=== PATIENT | female | born 1930 | race Caucasian/White ===

== ENCOUNTER → 2016-12-20 | Outpatient (CLI) | payer MEDICARE, OTHER | END | disposition home or self-care (01) | LOC: PCVCIMAG 11:29 | PROVIDERS: ATTEND Internal Medicine Cardiovascular Disease | DX: I65.23 Occlusion and stenosis of bilateral carotid arteries (principal); R55 Syncope and collapse; I10 Essential (primary) hypertension; R60.9 Edema, unspecified | CPT/HCPCS: 93005; 93880; G0463 ==

== ENCOUNTER → 2017-06-20 | Outpatient (CLI) | payer MEDICARE ==
--- NOTE | 2017-06-20 13:15 | PCVCIMAG ---
APPROVED REPORT Indications Stenosis Risk Factors Hypertension: Hyperlipidemia Doppler Spectral Velocity Analysis PSV / EDVPSV / EDV ECA (R) 204 / 11 cm/sECA (L) 129 / 15 cm/s dICA (R) 96 / 18 cm/sdICA (L) 74 / 21 cm/s [place] (R) 219 / 41 cm/smICA (L) 194 / 26 cm/s pICA (R) 270 / 70 cm/spICA (L) 201 / 45 cm/s Bulb (R) 77 / 14 cm/sBulb (L) 82 / 14 cm/s dCCA (R) 92 / 13 cm/sdCCA (L) 74 / 12 cm/s mCCA (R) 91 / 12 cm/smCCA (L) 87 / 12 cm/s Vert (R) 83 / 0 cm/sVert (L) 46 / 8 cm/s ICA/CCA 2.93ICA/CCA 2.72 Basic Measurements Blood Pressure: Pulses: Right Left RightLeft Brachial(Sitting) 150/95qfAo317/68mmHgTemporal Real Time B-Mode Imaging Vert. (R)AntegradeVert. (L)Antegrade Findings The right carotid bulb has severe calcified plaque. The right proximal internal carotid artery shows 70-90% stenosis. The right common carotid artery shows no significant stenosis. The right external carotid artery shows >50% stenosis. The left carotid bulb has moderately severe calcified plaque. The left proximal internal carotid artery shows 60-70% stenosis. The left common carotid artery shows no significant stenosis. The left external carotid artery shows <40% stenosis. Conclusion 1. Right internal carotid artery stenosis (70-90%) 2. Left internal carotid artery stenosis (60-70%) 3. Antegrade vertebral flow
== END | disposition home or self-care (01) ==
LOC: PCVCIMAG 12:09
PROVIDERS: ATTEND Internal Medicine
DX: I65.23 Occlusion and stenosis of bilateral carotid arteries (principal); I10 Essential (primary) hypertension; E78.5 Hyperlipidemia, unspecified; Z90.710 Acquired absence of both cervix and uterus; Z90.5 Acquired absence of kidney; Z79.82 Long term (current) use of aspirin; Z88.0 Allergy status to penicillin; Z88.6 Allergy status to analgesic agent
CPT/HCPCS: 80061; 93005; 93880; G0463

== ENCOUNTER → 2018-01-31 | Outpatient (CLI) | payer MEDICARE | END | disposition home or self-care (01) | LOC: PCVCCLINIC 11:21 | DX: I10 Essential (primary) hypertension (principal); E78.5 Hyperlipidemia, unspecified; I65.23 Occlusion and stenosis of bilateral carotid arteries; Z79.82 Long term (current) use of aspirin; Z79.899 Other long term (current) drug therapy; Z88.0 Allergy status to penicillin | CPT/HCPCS: 80061; 93005; G0463 ==

== ENCOUNTER → 2018-08-22 | Outpatient (CLI) | payer MEDICARE ==
--- NOTE | 2018-08-22 16:14 | PCVCIMAG ---
APPROVED REPORT Indications Stenosis Risk Factors Hypertension: Hyperlipidemia Doppler Spectral Velocity Analysis PSV / EDVPSV / EDV ECA (R) 180 / 0 cm/sECA (L) 65 / 0 cm/s dICA (R) 80 / 12 cm/sdICA (L) 57 / 16 cm/s [place] (R) 243 / 32 cm/smICA (L) 178 / 28 cm/s pICA (R) 267 / 70 cm/spICA (L) 225 / 51 cm/s Bulb (R) 63 / 13 cm/sBulb (L) 63 / 13 cm/s dCCA (R) 61 / 13 cm/sdCCA (L) 56 / 12 cm/s mCCA (R) 54 / 12 cm/smCCA (L) 51 / 9 cm/s Vert (R) 69 / 10 cm/sVert (L) 49 / 9 cm/s ICA/CCA 4.38ICA/CCA 4.02 Basic Measurements Blood Pressure: Pulses: Right Left RightLeft Brachial(Sitting) 136/18tqOi289/80mmHgTemporal Real Time B-Mode Imaging Vert. (R)AntegradeVert. (L)Antegrade Findings The right carotid bulb has moderately severe calcified plaque. The right proximal internal carotid artery shows 70-90% stenosis. The right common carotid artery shows no significant stenosis. The right external carotid artery shows >50% stenosis. The left carotid bulb has moderately severe calcified plaque. The left proximal internal carotid artery shows 60-70% stenosis. The left common carotid artery shows no significant stenosis. The left external carotid artery shows no significant stenosis. Conclusion 1. Right internal carotid artery stenosis (70-90%) 2. Left internal carotid artery stenosis (60-70%) 3. Antegrade vertebral flow Similar to May 2017
== END | disposition home or self-care (01) ==
LOC: PCVCIMAG 12:31
PROVIDERS: ATTEND Internal Medicine
DX: I65.23 Occlusion and stenosis of bilateral carotid arteries (principal); R55 Syncope and collapse; I10 Essential (primary) hypertension; E78.5 Hyperlipidemia, unspecified; R09.89 Other specified symptoms and signs involving the circulatory and respiratory systems; Z79.82 Long term (current) use of aspirin
CPT/HCPCS: 80061; 93005; 93880; G0463